=== PATIENT | female | born 1990 | race African-American/Black ===

== ENCOUNTER 2017-01-27 18:40 | Inpatient (IN) | payer MEDICAID ==
[~2017-01-27] VITALS: Ht 165.1 cm; Wt 71.2 kg
[2017-01-27] MEDS: LACTATED RINGER'S 1,000 ML IV SCH ×2 (18:52→19:39)
[2017-01-27] MEDS ORDERED: fentaNYL CITRATE 100 MCG/2 ML VL ONE (19:17)
[2017-01-27] MEDS ORDERED: MIDAZOLAM HCL 1MG/1ML-2 ML VIAL ONE (19:18)
[2017-01-27] MEDS ORDERED: TETRACAINE 1% INJ 2 ML VIAL IJ ONE (19:18)
[2017-01-27] MEDS ORDERED: OXYTOCIN 10 UNIT/ML 10ML VIAL ONE (19:33)
[2017-01-27] MEDS ORDERED: ceFAZolin 1GM VL ONE (19:33)
[2017-01-27] MEDS ORDERED: PROPOFOL 10 MG/ML 20 ML IV ONE (19:33)
[2017-01-27 19:39] LABS: Basophils # (auto) 0 uL; Basophils % (auto) 0.3 % (0.0-2.0); Eosinophils # (auto) 0.1 uL; Eosinophils % (auto) 1.4 % (0.0-7.0); Hematocrit 32.6 % (36.0-46.0); Hemoglobin 10.8 g/dL (12.2-16.2); Lymphocytes # (auto) 2.9 uL; Lymphocytes % (auto) 29.8 % (10.0-50.0); Mean Corpuscular Hgb Conc. 33.1 g/dL (32.0-36.0); Mean Corpuscular Volume 93.6 fL (80.0-100.0); Mean Platelet Volume 9.2 fL (7.4-10.4); Monocytes # (auto) 0.6 uL; Monocytes % (auto) 6.6 % (0.0-12.0); Neutrophils % (auto) 61.9 % (37.0-80.0); Platelet Count (auto) 236 10^3/uL (140-450); Red Cell Distribution Width 14.3 % (11.6-16.0); White Blood Cell 9.7 10^3/uL (4.4-10.8)
[2017-01-27 19:54] LABS: Albumin 2.7 g/dL (3.4-5.0); BUN/Creatinine Ratio 10.8; Bilirubin, Total 0.3 mg/dL (0.2-1.0); Calcium 8.6 mg/dL (8.5-10.1); Total Protein 7.6 g/dL (6.4-8.2)
[2017-01-27 20:03] LABS: Urine Bilirubin Negative (Negative); Urine Blood Negative /uL (Negative); Urine Color Yellow (Yellow); Urine Glucose Normal (Normal); Urine Ketone Negative (Negative); Urine Nitrite Negative (Negative); Urine RBC <1 /hpf (0 - 4); Urine Squamous Epithelial Cell FEW /hpf (<5); Urine Urobilinogen Normal (Negative); Urine pH 7.5 (5.0-8.0)
[2017-01-27 20:19] LABS: Partial Thromboplastin Time 27.5 sec (22.64-33.71); Prothrombin Time 9.6 sec (9.37-12.3)
[2017-01-27 20:20] LABS: INR 0.89 (0.9-1.15)
[2017-01-27] MEDS ORDERED: KETOROLAC TROMETH 30 MG/ML 1ML VIAL IV ONE (20:30)
[2017-01-27] MEDS ORDERED: MIDAZOLAM HCL 1MG/1ML-2 ML VIAL IV PRN (20:30)
[2017-01-27] MEDS ORDERED: LABETALOL HCL 5 MG/ML 4ML SYRINGE IV PRN (20:30)
[2017-01-27] MEDS ORDERED: MORPHINE SULF INJ 2 MG/ML SYRINGE 1ML IV PRN (20:30)
[2017-01-27] MEDS ORDERED: HYDROmorphone HCL 2 MG/ML VL IV PRN ×2 (20:30→20:45)
[2017-01-27] MEDS ORDERED: ONDANSETRON HCL 4 MG/2 ML VIAL IV PRN ×2 (20:30→20:45)
[2017-01-27] MEDS ORDERED: ePHEDrine SULFATE 50 MG/ML AMP IV PRN (20:30)
[2017-01-27] MEDS ORDERED: ONDANSETRON HCL 4 MG/2 ML VIAL IV ONE (20:30)
[2017-01-27] MEDS ORDERED: OXYTOCIN 10UNIT/ML 1ML VIAL ONE (20:58)
[2017-01-27 21:55] VITALS: BP 105/61
[2017-01-27 22:10] VITALS: BP 92/62
[2017-01-27] MEDS ORDERED: ceFAZolin 1GM/50ML D5W 50 ML IV ONE (22:16)
[2017-01-27 22:25] VITALS: BP 88/54
[2017-01-27 22:40] VITALS: BP 98/65
[2017-01-27 23:10] VITALS: BP 101/50
[2017-01-27 23:40] VITALS: BP 120/69
[2017-01-28] VITALS (11 sets, daily range): BP systolic 108–148; BP diastolic 62–91
[2017-01-28] MEDS: LACTATED RINGER'S 1,000 ML IV SCH ×3 (02:52→20:34)
[2017-01-28] MEDS: KETOROLAC TROMETH 30 MG/ML 1ML VIAL IV SCH ×3 (05:45→12:25)
[2017-01-28 06:00] LABS: Basophils # (auto) 0 uL; Basophils % (auto) 0.2 % (0.0-2.0); Eosinophils # (auto) 0.1 uL; Eosinophils % (auto) 0.9 % (0.0-7.0); Hematocrit 35.7 % (36.0-46.0); Hemoglobin 11.6 g/dL (12.2-16.2); Lymphocytes # (auto) 1.9 uL; Lymphocytes % (auto) 18.8 % (10.0-50.0); Mean Corpuscular Hemoglobin 31.5 pg (28.0-32.0); Mean Corpuscular Hgb Conc. 32.4 g/dL (32.0-36.0); Mean Platelet Volume 9.1 fL (7.4-10.4); Monocytes # (auto) 0.7 uL; Monocytes % (auto) 6.6 % (0.0-12.0); Neutrophils # (auto) 7.6 uL; Neutrophils % (auto) 73.5 % (37.0-80.0); Platelet Count (auto) 190 10^3/uL (140-450); Red Cell Distribution Width 14.1 % (11.6-16.0); White Blood Cell 10.4 10^3/uL (4.4-10.8)
[2017-01-28] MEDS ORDERED: POTASSIUM CHL 20MEQ/100ML 100 ML IV ONE (06:00)
[2017-01-28] MEDS ORDERED: ceFAZolin 1GM/50ML D5W 50 ML IV SCH (06:00)
[2017-01-28] MEDS: ceFAZolin 1GM/50ML D5W 50 ML IV SCH ×2 (06:25→13:31)
[2017-01-28] MEDS ORDERED: PREN-96 PO (16:35)
[2017-01-28] MEDS ORDERED: HYDROcodone-ACET 10/325MG TAB PO PRN (18:00)
[2017-01-28] MEDS ORDERED: BISACODYL 10 MG RECT SUPP PR PRN (18:00)
[2017-01-28] MEDS: SIMETHICONE 80 MG CHEWABLE TABLET PO SCH ×2 (18:30→21:52)
[2017-01-28] MEDS: HYDROcodone-ACET 10/325MG TAB PO PRN (18:47)
[2017-01-28] MEDS: DOCUSATE SOD 100 MG CAP PO SCH (21:52)
[2017-01-28] MEDS: IBUPROFEN 800 MG TAB PO PRN (23:02)
[2017-01-29 03:20] VITALS: BP 100/57
[2017-01-29] MEDS: HYDROcodone-ACET 10/325MG TAB PO PRN ×2 (03:23→09:49)
[2017-01-29] MEDS: LACTATED RINGER'S 1,000 ML IV SCH (04:34)
[2017-01-29] MEDS: SIMETHICONE 80 MG CHEWABLE TABLET PO SCH ×4 (05:39→21:59)
[2017-01-29 06:41] VITALS: BP 113/59
[2017-01-29] MEDS: DOCUSATE SOD 100 MG CAP PO SCH ×2 (09:49→21:59)
[2017-01-29] MEDS ORDERED: DOCUSATE CALCIUM 240 MG CAP PO PRN (10:00)
[2017-01-29 11:14] VITALS: BP 113/70
[2017-01-29] MEDS: IBUPROFEN 800 MG TAB PO PRN (15:13)
[2017-01-29 15:14] VITALS: BP 114/70
[2017-01-29 16:12] LABS: HIV-1/O/2 Scrn w/Reflex Non Reactive (Non Reactive)
[2017-01-29 19:30] VITALS: BP 115/70
[2017-01-29 23:30] VITALS: BP 126/79
[2017-01-30] MEDS: HYDROcodone-ACET 10/325MG TAB PO PRN (00:33)
[2017-01-30 02:30] VITALS: BP 120/82
[2017-01-30] MEDS: IBUPROFEN 800 MG TAB PO PRN (05:20)
[2017-01-30] MEDS: SIMETHICONE 80 MG CHEWABLE TABLET PO SCH (05:30)
[2017-01-30 07:00] VITALS: BP 123/73
[2017-01-30] MEDS: DOCUSATE SOD 100 MG CAP PO SCH (10:00)
[2017-01-30 11:37] VITALS: BP 117/70
== END 2017-01-30 13:10 | disposition home or self-care (01) | DRG 540 ==
LOC: LDRP 18:40 → NUR 20:22 → LDRP 21:04
PROVIDERS: ADMIT Specialist; ATTEND Specialist
PROC: 10D00Z1 Extraction of Products of Conception, Low, Open Approach (ICD-10-PCS; principal; 2017-01-27 19:42)
DX: O34.211 Maternal care for low transverse scar from previous cesarean delivery (principal); O99.324 Drug use complicating childbirth; F19.10 Other psychoactive substance abuse, uncomplicated; Z37.0 Single live birth; Z3A.39 39 weeks gestation of pregnancy; O77.0 Labor and delivery complicated by meconium in amniotic fluid
CPT/HCPCS: 36415; 51702; 76805; 80053; 80307; 81001; 84132; 85025; 85610; 85730; 86592; 86762; 86850; 86900; 86901; 87340; 96366; 96372; 96375; J0690; J1885; J2250; J2590; J2704; J3480

== ENCOUNTER 2019-01-01 11:19 | Emergency (ER) | payer MEDICAID ==
[~2019-01-01] VITALS: Ht 167.6 cm; Wt 73.5 kg
[~2019-01-01 11:19] MED LIST: PREN-96 PO
[2019-01-01 11:25] VITALS: BP 132/94
[2019-01-01 12:08] LABS: Urine Bacteria NONE SEEN /hpf (None Seen); Urine Blood 2+ /uL (Negative); Urine Specific Gravity 1.026 (1.001-1.035); Urine WBC 107 /hpf (0 - 5)
== END 2019-01-01 12:37 | disposition left against medical advice (07) ==
LOC: ER 11:19
DX: N39.0 Urinary tract infection, site not specified (principal); F17.210 Nicotine dependence, cigarettes, uncomplicated; F12.10 Cannabis abuse, uncomplicated
CPT/HCPCS: 81001